=== PATIENT | female | born 1985 | race Hispanic/Latino ===

== ENCOUNTER 2024-12-01 19:18 | Emergency (ER) | payer OTHER ==
[2024-12-01 20:30] LABS: Specific Gravity 1.015 (1.005-1.030); Sqamous Epithelial <5 /HPF (None Seen); Urine Bacteria None Seen /HPF (<20); Urine Bilirubin NEGATIVE (Negative); Urine Blood Negative (Negative); Urine Clarity Clear (Clear); Urine Color Light-Yellow (Yellow); Urine Culture Reflex Order NOT NEEDED; Urine Glucose NEGATIVE (Negative); Urine Ketones NEGATIVE (Negative); Urine Microscopic Reflex YN ORDER UMIC; Urine Nitrite NEGATIVE (Negative); Urine Protein NEGATIVE (Negative); Urine RBC <5 /HPF (None Seen); Urine Urobilinogen Normal (Normal); Urine WBC <5 /HPF (<5); Urine pH 5.5 (5.0-7.0)
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
[2024-12-01] MEDS ORDERED: KETOROLAC 30 MG/ML INJ ONE (20:59)
[2024-12-02 07:18] VITALS: BP 150/88; TEMP 98.5; O2SAT 100
== END 2024-12-01 21:08 | disposition home or self-care (01) ==
LOC: ER 19:18
DX: M54.9 Dorsalgia, unspecified (principal); V59.40XA Driver of pick-up truck or van injured in collision with unspecified motor vehicles in traffic accident, initial encounter
CPT/HCPCS: 81001; 81025; 96372; 99284